=== PATIENT | female | born 1985 | race Two or more races ===

== ENCOUNTER 2024-11-07 11:20 | Day surgery (SDC) | payer MEDICAID, SELFPAY ==
[2024-11-06 15:08] VITALS: BMI 26.5
[2024-11-07] VITALS (10 sets, daily range): BP systolic 108–145; BP diastolic 61–101; PULSE 57–86; RESP 9–16; TEMP 36.6; O2SAT 96–100; BMI 25.8
[2024-11-07] MEDS: MIDAZOLAM INJ 1 MG/ML VIAL 2 ML (ASD USE ONLY) 2 MG IVP (12:58)
[2024-11-07] MEDS: BENZOCAINE 20% (Hurricaine) SPRAY 1 DOSE TOP (12:58)
[2024-11-07] MEDS: fentaNYL CIT INJ 50 mCg/ML AMP 2ML (ASD USE ONLY) IVP (12:59)
[2024-11-07] MEDS: EPINEPHrine INJ 0.1 MG/ML SYRINGE 10ML 1 MG SUBMUCOSAL (13:06)
[2024-11-07] MEDS: RINGERS LACTATED 500 ML 500 ML 20 ML IV (13:06)
== END 2024-11-07 14:09 | disposition home or self-care (01) ==
PROVIDERS: PCP Specialist; Referring Provider Internal Medicine Gastroenterology; Visit Provider Internal Medicine Gastroenterology
PROC: (CPT 43239; principal; 2024-11-07 12:45)
DX: K25.9 Gastric ulcer, unspecified as acute or chronic, without hemorrhage or perforation (principal); I10 Essential (primary) hypertension; K29.50 Unspecified chronic gastritis without bleeding; K31.A19 Gastric intestinal metaplasia without dysplasia, unspecified site
CPT/HCPCS: 43239; 81025; A4217; A4649; J0168; J1200; J2250; J3010; J7120; A9270

== ENCOUNTER 2024-11-09 10:45 | Day surgery (SDC) | payer MEDICAID, SELFPAY ==
[2024-11-08 13:37] VITALS: BMI 26.5
[2024-11-09] VITALS (9 sets, daily range): BP systolic 101–130; BP diastolic 28–100; PULSE 64–93; RESP 14–20; TEMP 36.3–36.8; O2SAT 96–100; BMI 24.6
[2024-11-09] MEDS: LIDOCAINE JELLY 2% 5 ML TUBE 2.5 ML TOP (12:09)
[2024-11-09] MEDS: RINGERS LACTATED 500 ML 500 ML 20 ML IV (12:10)
[2024-11-09] MEDS: MIDAZOLAM INJ 1 MG/ML VIAL 2 ML (ASD USE ONLY) 2 MG IVP (12:12)
[2024-11-09] MEDS: fentaNYL CIT INJ 50 mCg/ML AMP 2ML (ASD USE ONLY) IVP (12:12)
== END 2024-11-09 13:14 | disposition home or self-care (01) ==
PROVIDERS: Referring Provider Internal Medicine Gastroenterology; Visit Provider Internal Medicine Gastroenterology
PROC: 0DBE8ZX Excision of Large Intestine, Via Natural or Artificial Opening Endoscopic, Diagnostic (ICD-10-PCS; CPT 45380; principal; 2024-11-09 12:00)
DX: K63.89 Other specified diseases of intestine (principal); K64.9 Unspecified hemorrhoids
CPT/HCPCS: 45380; A4217; A4649; J1200; J2250; J3010; J7120; A9270

== ENCOUNTER 2024-11-23 10:45 | Day surgery (SDC) | payer MEDICAID, SELFPAY ==
[2024-11-23] VITALS (8 sets, daily range): BP systolic 105–147; BP diastolic 63–94; PULSE 53–60; RESP 12–20; TEMP 36.5–36.7; O2SAT 96–100; BMI 25.7
[2024-11-23] MEDS: BENZOCAINE 20% (Hurricaine) SPRAY 1 DOSE TOP (12:29)
[2024-11-23] MEDS: RINGERS LACTATED 500 ML 500 ML 20 ML IV (12:29)
[2024-11-23] MEDS: fentaNYL CIT INJ 50 mCg/ML AMP 2ML (ASD USE ONLY) IVP (12:31)
[2024-11-23] MEDS: MIDAZOLAM INJ 1 MG/ML VIAL 2 ML (ASD USE ONLY) 2 MG IVP (12:31)
[2024-11-23] MEDS: PANTOPRAZOLE/NS 80MG IV PREMIX 80 MG/100 ML BAG 400 MG IV (13:00)
== END 2024-11-23 13:35 | disposition home or self-care (01) ==
PROVIDERS: PCP Specialist; Referring Provider Internal Medicine Gastroenterology; Visit Provider Internal Medicine Gastroenterology
PROC: (CPT 43239; principal; 2024-11-23 12:45)
DX: K29.51 Unspecified chronic gastritis with bleeding (principal); K52.9 Noninfective gastroenteritis and colitis, unspecified; I10 Essential (primary) hypertension
CPT/HCPCS: 43239; 81025; A4649; J1200; J2250; J3010; J3490; J7120; A9270